=== PATIENT | female | born 1965 | race American Indian/Alaskan Native ===

== ENCOUNTER 2016-08-18 09:39 | Outpatient (CLI) | payer OTHER ==
--- NOTE | 2016-08-18 14:17 | Mammography Report ---
Bilateral mammogram: Compared to 05/18/14. CAD study utilized. Findings: Focal new dense ill-defined asymmetry measuring 1 cm in diameter posterior left breast seen on MLO view. A focal 3 mm ill-defined new dense asymmetry posterior right breast. No microcalcification. Benign axillary nodes. No mass. Impression: Focal dense asymmetry left breast and right breast. Recommend spot mag and if necessary sonographic examination. BI-RADS CATEGORY: 0 = Needs additional imaging evaluation ACR BI-RADS MAMMOGRAPHIC CODES: 0 = Needs additional imaging evaluation; 1 = Negative; 2 = Benign; 3 = Probably benign; 4 = Suspicious; 5 = Malignant; 6 = Known biopsy-proven malignancy COMMENT: 1. Dense breast tissue, i.e., adenosis, fibrocystic changes, etc., may obscure an underlying neoplasm. 2. Approximately 10% of cancers are not detected with mammography. 3. A negative mammography report should not delay biopsy if a clinically suspicious mass is present. COMMENT: Patient follow-up letters are generated in [employer].
== END 2016-08-18 09:40 | disposition home or self-care (01) ==
LOC: MAMMO 09:39
DX: Z12.31 Encounter for screening mammogram for malignant neoplasm of breast (principal)
CPT/HCPCS: 77067; G0202

== ENCOUNTER 2017-02-23 08:41 | Outpatient (CLI) | payer OTHER ==
--- NOTE | 2017-02-23 09:25 | Mammography Report ---
BILATERAL DIGITAL DIAGNOSTIC MAMMOGRAM : 02/23/17 08:41:00 CLINICAL: Followup for bilateral asymmetries. COMPARISON:08/18/16 screening FINDINGS: Bilateral mammographic images were performed and demonstrate no persistent asymmetries as described on the prior exam. IMPRESSION: No mammographic evidence of malignancy. BI-RADS CATEGORY: 1 -- Negative RECOMMENDATION: Return to routine mammographic screening. ACR BI-RADS MAMMOGRAPHIC CODES: 0 = Needs additional imaging evaluation; 1 = Negative; 2 = Benign; 3 = Probably benign; 4 = Suspicious; 5 = Malignant; 6 = Known biopsy-proven malignancy COMMENT: 1. Dense breast tissue, i.e., adenosis, fibrocystic changes, etc., may obscure an underlying neoplasm. 2. Approximately 10% of cancers are not detected with mammography. 3. A negative mammography report should not delay biopsy if a clinically suspicious mass is present. COMMENT: Patient follow-up letters are generated via our [employer] application.
== END 2017-02-23 08:42 | disposition home or self-care (01) ==
LOC: MAMMO 08:41
PROVIDERS: ATTEND Family Medicine
DX: R92.8 Other abnormal and inconclusive findings on diagnostic imaging of breast (principal); Z80.3 Family history of malignant neoplasm of breast
CPT/HCPCS: 77066; G0204